=== PATIENT | female | born 1995 | race African-American/Black ===

== ENCOUNTER 2020-05-15 21:28 | Emergency (ER) | payer SELFPAY ==
[2020-05-15] MEDS ORDERED: HYDROcodone/Acetaminophen 5/325 mg Tablet ONE (22:37)
[2020-05-15] MEDS ORDERED: Cefdinir 300 MG CAP PO SCH (23:00)
== END 2020-05-15 23:12 | disposition home or self-care (01) ==
LOC: CSHERS 21:28
DX: H66.92 Otitis media, unspecified, left ear (principal)
CPT/HCPCS: 99282

== ENCOUNTER 2021-11-03 18:20 | Emergency (ER) | payer BC, SELFPAY | END 2021-11-03 19:30 | disposition home or self-care (01) | LOC: CSHERS 18:20 | DX: K08.89 Other specified disorders of teeth and supporting structures (principal); K02.9 Dental caries, unspecified; K03.81 Cracked tooth; Z88.0 Allergy status to penicillin; Z88.5 Allergy status to narcotic agent | CPT/HCPCS: 99282 ==

== ENCOUNTER 2022-04-19 09:29 | Emergency (ER) | payer BC ==
[2022-04-19 10:58] LABS: #Eosinphils 0.1 10x3/uL (0.0-0.5); #Monocytes 0.4 10x3/uL (0.0-1.1); #Neutrophils 5.2 10x3/uL (1.5-8.4); %Basophils 0.2 % (0.0-2.0); %Monocytes 5.4 % (0.0-10.0); %Neutrophils 64.2 % (40.0-75.0); Hemoglobin 11.7 g/dL (12.0-15.5); Mean Corpuscular HGB CONC 30.7 g/dL (32.0-36.0); Mean Corpuscular Hemoglobin 21.6 pg (27.0-33.0); Mean Corpuscular Volume 70.3 fl (81.6-98.3); Mean Platelet Volume 10.3 fl (7.4-10.4); Platelet Count 315 10x3/uL (150-450); RBC Distribution Width 19.9 % (11.5-14.5); Red Blood Cell (RBC) Count 5.42 10x6/uL (3.90-5.03); White Blood Cell (WBC) Count 8.1 10x3/uL (3.5-10.5)
[2022-04-19 11:15] LABS: BHCG - Serum Negative (NEGATIVE); Pregs Control Background? CLEAR/WHITE (CLR/WHITE); Pregs Control Bar Appear? YES (CONTROL BAR)
[2022-04-19 11:23] LABS: ALT (SGPT) 15 U/L (8-55); AST (SGOT) 18 U/L (5-34); Albumin 4.2 g/dL (3.5-5.0); Alkaline Phosphatase 77 U/L (40-110); Anion Gap 17 mmol/L (10-20); BUN (Urea Nitrogen) 8 mg/dL (7.0-18.7); Bilirubin, Total 0.4 mg/dL (0.2-1.2); Calc. Creatinine Clearance 0 mL/min (70-130); Calcium 9.7 mg/dL (7.8-10.44); Carbon Dioxide 21 mmol/L (22-29); Chloride 105 mmol/L (98-107); Estimated GFR 117; Globulin 3.6 g/dL (2.4-3.5); Glucose 97 mg/dL (70-105); Potassium 4.5 mmol/L (3.5-5.1); Protein, Total 7.8 g/dL (6.0-8.3); Sodium 138 mmol/L (136-145)
[2022-04-19] MEDS ORDERED: Ketorolac Tromethamine 30 MG/ML VIAL ONE (11:59)
== END 2022-04-19 12:05 | disposition home or self-care (01) ==
LOC: CSHERS 09:29
DX: N92.0 Excessive and frequent menstruation with regular cycle (principal)
CPT/HCPCS: 80053; 84703; 85025; 96372; 99284; J1885

== ENCOUNTER 2023-08-16 18:22 | Emergency (ER) | payer BC | END 2023-08-16 20:00 | disposition home or self-care (01) | LOC: CSHERS 18:22 | DX: H66.91 Otitis media, unspecified, right ear (principal); R59.9 Enlarged lymph nodes, unspecified | CPT/HCPCS: 99282 ==

== ENCOUNTER 2024-01-09 13:22 | Emergency (ER) | payer BC, SELFPAY ==
[2024-01-09] MEDS ORDERED: Fluorescein Opthalmic Strip ONE (14:19)
[2024-01-09] MEDS ORDERED: Tetracaine 0.5% PF 4 ML BOT ONE (14:19)
== END 2024-01-09 15:09 | disposition home or self-care (01) ==
LOC: CSHERS 13:22
DX: J06.9 Acute upper respiratory infection, unspecified (principal); H57.11 Ocular pain, right eye
CPT/HCPCS: 99283

== ENCOUNTER 2024-01-17 12:59 | Emergency (ER) | payer SELFPAY | END 2024-01-17 13:54 | disposition home or self-care (01) | LOC: CSHERS 12:59 | DX: H10.9 Unspecified conjunctivitis (principal) | CPT/HCPCS: 99282 ==